=== PATIENT | female | born 1940 | race Caucasian/White ===

== ENCOUNTER 2022-08-21 15:25 | Inpatient (IN) | payer MEDICARE, OTHER, SELFPAY ==
[2022-08-21 15:38] VITALS: BP 182/84; PULSE 67; RESP 18; TEMP 37.4; O2SAT 97
--- OUTSIDE RECORDS SUMMARY | 2022-08-21 15:39 | XMS_ITS | Continuity of Care Document ---
:1940 Author Organization [facility] Address [address] [place] [address] Care Team Providers Name Role Phone Addison Soria Primary Care Physician Encounter [facility] Date(s): 06/03/22 - 06/03/22 [facility] [address] [place] [address] Encounter Diagnosis Osteoporosis screening (Discharge Diagnosis) - 06/03/22 Encounter for annual routine gynecological examination (Discharge Diagnosis) - 06/03/22 Discharge Disposition: Home or Self Care Attending Physician: Kylie Lou MD Admitting Physician: Kylie Lou MD Referring Physician: Kylie Lou MD Allergies, Adverse Reactions, Alerts Substance Reaction Severity Status BEE VENOM PROTEIN (HONEY BEE) Unknown Ac tive CEDAR LEAF Unknown Active CEDARWOOD Unknown Active FISH CONTAINING PRODUCTS Unknown Active INSECT VENOM Unknown Active PEANUT Unknown Active LATEX Unknown Active MELON Anaphylactic reaction Unknown Active SHELLFISH DERIVED Anaphylactic reaction Unknown Active CUCUMBER Unknown Active ciprofloxacin Unknown Active codeine Urticaria Unknown Active erythromycin Urticaria Unknown Active iodine topical Urticaria Unknown Active conjugated estrogens Unknown Active albuterol Unknown Active nystatin Unknown Active Bee Stings1 Unknown Unknown Active penicillins Urticaria Unknown Active sulfa drugs Urticaria Unknown Active aloe vera Unknown Unknown Active metroNIDAZOLE Urticaria Unknown Active quiNINE Unknown Active Banana Swelling Unknown Active Tumefaction Cucumbers Unknown Unknown Active Fluvanna wood2 Unknown Unknown Active 1Outside Source Comment: Bee venom [id number] Source Comment: Fluvanna leaf Assessment and Plan Future Appointments Immunizations Given and Recorded Vaccine Date Status Refusal Reason influenza virus vaccine, inactivated 05/09/22 Given influenza virus vaccine, inactivated 07/25/16 Recorded influenza virus vaccine, inactivated 08/07/15 Recorded influenza virus vaccine, inactivated 06/16/14 Recorded influenza virus vaccine, inactivated 05/22/13 Recorded influenza virus vaccine, inactivated 08/17/12 Recorded influenza virus vaccine, inactivated 06/09/11 Recorded SARS-CoV-2 (COVID-19) mRNA-1273 vaccine 06/21/21 Recorded SARS-CoV-2 (COVID-19) mRNA-1273 vaccine 11/04/20 Recorded SARS-CoV-2 (COVID-19) mRNA-1273 vaccine 10/07/20 Recorded influenza, unspecified formulation 05/06/21 Recorded influenza virus vaccine, live 07/26/18 Recorded pneumococcal 13-valent conjugate vaccine 08/24/15 Recorde d pneumococcal 23-polyvalent vaccine 06/23/11 Recorded pneumococcal 23-polyvalent vaccine 05/01/08 Recorded tetanus/diphth/pertuss (Tdap) adult/adol 06/09/11 Recorde d tetanus-diphth toxoids (Td) adult/adol 11/19/96 Recorded varicella virus vaccine 08/21/00 Recorded rubella virus vaccine 08/21/00 Recorded Problem List Condition Confirmation Course Effective Dates Status Health Stat us Informant Allergic rhinitis Confirmed Active Backache Confirmed Active Cataract of right Confirmed 06/18/19 Active eye Kenney of toe Confirmed Active Crohn's disease Confirmed Active Dementia Confirmed 05/06/21 Active Elevated Confirmed Active blood-pressure reading without diagnosis of hypertension Fibromyalgia Confirmed Active Gastritis Confirmed Active Hemangioma of skin Confirmed Active and subcutaneous tissue Panic disorder Confirmed Active Rectal prolapse Confirmed Active Uterine prolapse Confirmed Active Procedures Procedure Date Related Diagnosis Body Site Status Vaginal hysterectomy1 03/09/21 Comple jabari Colonoscopy2 08/20/14 Completed Abscess Incision and Drainage3 Completed Tonsillectomy and adenoidectomy Completed 1TVH, USVVS, A&P repair, [id number] of fistula tract and injection fibrin [id number] and transsphincteric Social History Social History Type Response Tobacco Former tobacco user Tobacco Use:. Sex Female Patient Care team information PersonnelName: Addison Soria MD Address: Address: [address] [address]- [place]
[2022-08-21] MEDS: Lactated Ringers 1,000 ML 85 ML IV (16:40)
--- NOTE | 2022-08-21 17:00 | W.PM.HP.N ---
Date of service: 08/21/22 Time of Service: 17:00 Assessment and Plan Assessment and plan (1) Fracture of femoral neck, right: Status: Acute Assessment and plan: Patient is medically stable and has no contraindications for surgical repair of her hip. She has dementia severe enough that I do not feel she has capacity for decision making but her is her surrogate. I confirmed w/ him that she is a DNR/DNI in the event of cardiopulmonary arrest and he consents to her having operative repair of her hip. I did explain to him that during the time of her operation her DNR/DNI status will be revoked until she comes out of surgery and also that the nurse inspector metal fabricating will review her case in the morning. I have discussed her case w/ Dr. Williamson who presented to the hospital to interview and examine the patient independently and who spoke w/ the patient's over the telephone. I have ordered grubbs to be placed and will get urinalysis given her leukocytosis however, this may be reactive leukocytosis. History of Present Illness History of Present Illness Chief Complaint: right hip pain, s/p fall and fem. 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 found her fallen over a chair. She did not lose consciousness. She complained of a sore right hip but her was able to assist her to bed. However, when she could not walk this morning she was brought to [facility] in [place], [place]. However, no orthopedic sureon was available at their facility and when the ED provider tried to reach out to [facility] [place] did not have bed capacity so Dr. Williamson was called and he accepted the patient. Patient has no known hx of CAD/CHF/CVA/DM or HTN although she has hx of transient elevated BP w/out a formal dx of HTN. She takes no medications. Review of Systems All systems reviewed & are unremarkable except as noted in HPI and below PFSH All Active Problems (Updated 08/21/22 @ 19:25 by Nael Brady MD) Fracture of femoral neck, right (Acute) Medical History (Updated 08/21/22 @ 19:25 by Nael Brady MD) Allergic rhinitis Cataract, right eye Crohn's disease Dementia Elevated blood pressure reading without diagnosis of hypertension Fibromyalgia Hemangioma of skin Rectal prolapse Uterine prolapse Surgical History (Updated 08/21/22 @ 19:21 by Nael Brady MD) History of tonsillectomy and adenoidectomy History of vaginal hysterectomy Social History (Updated 08/21/22 @ 19:24 by Nael Brady MD) Smoking/Tobacco Use Status: Former Tobacco Use tobacco type: cigarettes Quit Date: 08/21/92 Tobacco: How many years used: 20 Smoking risk assessment performed?: Yes Alcohol Intake: never Meds Allergies and Home Medications Allergies Allergy/AdvReac Type Severity Reaction Status Date / Time albuterol Allergy Unverified 08/21/22 16:05 aloe vera Allergy Unverified 08/21/22 16:05 banana Allergy Unverified 08/21/22 16:05 bee venom protein (honey bee) Allergy Unverified 08/21/22 16:05 cedar leaf Allergy Unverified 08/21/22 16:05 cedarwood Allergy Unverified 08/21/22 16:05 ciprofloxacin Allergy Unverified 08/21/22 16:05 codeine Allergy Unverified 08/21/22 16:05 cucumber Allergy Unverified 08/21/22 16:05 erythromycin base Allergy Unverified 08/21/22 16:05 estrogens, conjugated Allergy Unverified 08/21/22 16:05 Fish Containing Products Allergy Unverified 08/21/22 16:05 iodine Allergy Unverified 08/21/22 16:05 latex Allergy Unverified 08/21/22 16:05 melon Allergy Unverified 08/21/22 16:05 metronidazole Allergy Unverified 08/21/22 16:05 nystatin Allergy Unverified 08/21/22 16:05 peanut Allergy Unverified 08/21/22 16:05 Penicillins Allergy Unverified 08/21/22 16:05 quinine Allergy Unverified 08/21/22 16:05 shellfish derived Allergy Unverified 08/21/22 16:05 Sulfa (Sulfonamide Allergy Unverified 08/21/22 16:05 Antibiotics) Home Medications Medication Instructions Recorded Confirmed Type Unknown [No Known Home Meds] 08/21/22 08/21/22 History Exam Narrative Exam Narrative: Elderly female lying in bed she is alert and only oriented to person however she knows that she is in the hospital and understands that she fractured her hip from a fall. She is unable to to give details as to how this happened and she is unable to give me any past medical history. She is very tangential in her conversation and in fact she does not remember answers I have given her at the beginning of our conversation and repeats her questions at the end of the conversation. She has difficulty finding the right words to express herself and at times uses the wrong word to describe what she wants to say. HEENT is unremarkable, teeth are in fair repair w/ a number of crowns. Oropharynx Mallampati class I Neck supple nontender, no JVD, no thyromegaly, normal carotid pulses Lungs: clear to auscultation Heart: RRR, no m,r,g Abdomen: soft, nontender, no organomegaly and no bruits Extremities: foreshortening of right leg, pain w/ palpation over right femoral neck; no ecchymoses, left leg normal ROM and strength, normal ROM and strength in both UE Pulses: normal carotid, radial and popliteal and pedal pulses Results Imaging CT scan - pelvis: report reviewed Labs Labs: Labs from [facility] are as follows: CBC WBC 12,600, Hb 13.5 gm, HCT 39.7, platelets 281,000, CMP: sodium 140, potassium 3.5, chloride 103, CO2 27, BUN 14, creatinine 0.81, AST 24, ALT 24, ALK PHOS 78, albumin 3.6 Last Vital Signs Temp 37.4 C 08/21/22 15:38 Pulse 67 08/21/22 15:38 Resp 18 08/21/22 15:38 BP 182/84 H 08/21/22 15:38 Pulse Ox 97 08/21/22 15:38
--- NOTE | 2022-08-21 18:25 | OCONE_ITS ---
Date of service: 08/21/22 Time of Service: 05:30 History of Present Illness History of Present Illness Chief Complaint: Right hip fracture Narrative: Dee is an 81-year-old female who lives at home with her . She is otherwise independent with ambulation and mobility using no assistive aids. Last night, she had a mechanical fall onto her right side. She reported some pain. Her was able to assist her up and get her back to bed. However, when she tried to get out of bed once again she had significant pain. This pain persisted when she was trying to move. As long she was still coming laying down, or sitting, she did not have any pain. However, given the limitations she was taken to the emergency department and diagnosed with a valgus impacted femoral neck fracture on the right side. This was at [facility]. [facility] denied orthopedic coverage and was unable to find an accepting tertiary referral location. I was called to request consultation and surgical treatment. She was admitted to the hospital service here at [facility] in transfer. She has severe dementia which precludes any history and does limit the exam. I reviewed the clinical scenario with her over the phone. He preferred these details listed above and also reported that she had no head trauma. She had no lightheadedness. She takes no medications. She does have multiple allergies. Consults Consult date: 08/21/22 Requesting physician: Nael Brady Consult Reason Right Femoral Neck Fracture Assessment and Plan Assessment and plan (1) Fracture of femoral neck, right: Status: Acute Assessment and plan: Dee is an 81-year-old female who is status post mechanical fall onto the right side suffering a valgus impacted femoral neck fracture. This truly does represent a stable injury given that she was able to bear some weight on this prior to presenting to the hospital. CT scan and x-ray, performed after she had been weightbearing, demonstrate no significant displacement. She does have some arthritic changes in the right hip although her reports no limitations with her functional status nor complaints of pain. Therefore, I think percutaneous screw fixation of the right hip fracture would make the most sense to preserve her function and allow this fracture to heal and continue her weightbearing status. It does carry the risk of osteonecrosis and hardware prominence as the primary risk. I discussed this with her . However, the simplicity of the surgery and the ability to perform this with minimal anesthetic would be beneficial for her overall mental status. I reviewed the technical details of percutaneous screw fixation for the femoral neck fracture. I discussed risk to include bleeding, infection, pain, stiffness, damage to nerves and vessels, damage to muscle and tendons, hardware prominence, hardware failure, malunion, nonunion, osteonecrosis, worsening arthritis, blood clot, need for repeat procedures, cardiopulmonary demise. All of his questions were answered and he desires to proceed with the surgery for Dee, consenting over the phone as her DPOA. Review of Systems All systems reviewed & are unremarkable except as noted in HPI and below PFSH All Active Problems Fracture of femoral neck, right (Acute) Medical History Allergic rhinitis Cataract, right eye Crohn's disease Dementia Elevated blood pressure reading without diagnosis of hypertension Fibromyalgia Hemangioma of skin Rectal prolapse Uterine prolapse Surgical History History of tonsillectomy and adenoidectomy History of vaginal hysterectomy Social History Smoking/Tobacco Use Status: Former Tobacco Use tobacco type: cigarettes Quit Date: 08/21/92 Tobacco: How many years used: 20 Smoking risk assessment performed?: Yes Alcohol Intake: never Exam Narrative Exam Narrative: Sitting up in the hospital bed eating dinner. She is alert but not oriented to place or time or situation. She is no recollection of events. She is able to minimally participate in the examination although filling in with details that are nonsensical to the question asked. Her right leg does appear slightly shorter and externally rotated when compared to the left side. She is quite thin but without any skin defects, abrasions, skin tears. She reports some generalized pain to palpation throughout although objectively seems to be most discomfort with palpation along the right hip. No other ecchymosis identified. No apparent sign of head trauma. She is able demonstrate active great toe extension and flexion as well as ankle dorsiflexion and plantarflexion. She does endorse sensation throughout the foot. Palpable DP pulse. Results Last Vital Signs Temp 37.4 C 08/21/22 15:38 Pulse 67 08/21/22 15:38 Resp 18 08/21/22 15:38 BP 182/84 H 08/21/22 15:38 Pulse Ox 97 08/21/22 15:38 Imaging Imaging Studies: X-ray of the right hip performed at [facility] demonstrates a valgus impacted femoral neck fracture. There is no notable medial fracture extension or displacement. CT scan of the right hip was also reviewed which once again shows this fracture pattern with a mild fracture defect medially but without displacement. There is no posterior angulation. There is some cystic change seen within the acetabulum, mostly on CT scan, but with some joint space present.
[2022-08-21 19:19] VITALS: BP 169/81; PULSE 72; RESP 20; TEMP 37.5; O2SAT 97
[2022-08-21] MEDS: ACETAMINOPHEN 1,000 MG/100 ML BTL 400 MG IVPB (20:40)
[2022-08-21 21:24] LABS: Bilirubin Negative (Negative); Blood Trace-intact (Negative); Clarity Sl Cloudy (Clear); Glucose Negative (Negative); Ketones Negative (Negative); Leukocyte Esterase Trace (Negative); Nitrite Negative (Negative); Urobilinogen 0.2 EU/dL (Up TO 0.2); pH 7.5 (5-8)
[2022-08-21 21:32] LABS: RBC 0-2 HPF (0-2)
[2022-08-21 21:33] LABS: Bacteria Moderate HPF (Negative); C & S Indicated? Yes; Casts Negative LPF (Negative); Crystals Negative HPF (Negative); Epithelial Cells Few HPF (Negative); Mucus Negative (Negative)
[2022-08-22 02:27] VITALS: BP 160/77; PULSE 69; RESP 16; TEMP 36.6; O2SAT 95
[2022-08-22] MEDS: ACETAMINOPHEN 1,000 MG/100 ML BTL 400 MG IVPB (03:59)
[2022-08-22] MEDS: Normal Saline Flush 10 ML SYR IVP (04:00)
[2022-08-22] MEDS: Lactated Ringers 1,000 ML 85 ML IV (04:44)
--- NOTE | 2022-08-22 06:15 | RT.EKG_ITS ---
APPROVED REPORT Exam: Resting ECG Reason for Exam: preop EKG Patient Location: I HR:65 bpm ECG Measurements Heart Rate 65 AXIS NH 120 P 73 QRSd 87 QRS 76 QT 419 T 60 QTc 436 Conclusion Sinus rhythm...normal P axis, V-rate 50- [address] depression, inferior leads...ST <-0.04mV, II III aVF
[2022-08-22 06:24] LABS: Abs Immature Grans 0.03 10^3/uL (0.0-0.06); Absolute Basophil Count 0.04 10^3/uL (0.0-0.2); Absolute Eosinophil Count 0.27 10^3/uL (0.0-0.7); Absolute Lymphocyte Count 1.17 10^3/uL (1.2-3.4); Absolute Monocyte Count 0.58 10^3/uL (0.1-0.8); Absolute Neutrophil Count 5.98 10^3/uL (1.2-6.7); Basophils % 0.5; Eosinophils % 3.3; HCT 38.6 % (36.0-46.0); Immature Grans % 0.4; Lymphocytes % 14.5; MCH 29.2 pg (27.0-33.0); MCHC 33.7 % (32.0-36.0); MCV 87 fL (80-95); Monocytes % 7.2; Neutrophils % 74.1; Platelet Count 262 10^3/uL (130-400); RBC 4.45 10^6/uL (3.93-5.22); RDW 11.6 % (11.7-14.6); RDW-SD 37.3 fL; WBC 8.07 10^3/uL (4.4-10.8)
--- NOTE | 2022-08-22 06:33 | W.ANESPRE ---
General Info Date of Service Date Performed: 08/22/22 Height: 5 ft 4 in (Guestimate. ) Weight: 52.072 kg Body Mass Index (BMI): 19.7 Surgical Procedure: Percutaneous screw fixation right femoral neck fracture Meds Allergies and Home Medications Allergies Allergy/AdvReac Type Severity Reaction Status Date / Time albuterol Allergy Unverified 08/21/22 16:05 aloe vera Allergy Unverified 08/21/22 16:05 banana Allergy Unverified 08/21/22 16:05 bee venom protein (honey bee) Allergy Unverified 08/21/22 16:05 cedar leaf Allergy Unverified 08/21/22 16:05 cedarwood Allergy Unverified 08/21/22 16:05 ciprofloxacin Allergy Unverified 08/21/22 16:05 codeine Allergy Unverified 08/21/22 16:05 cucumber Allergy Unverified 08/21/22 16:05 erythromycin base Allergy Unverified 08/21/22 16:05 estrogens, conjugated Allergy Unverified 08/21/22 16:05 Fish Containing Products Allergy Unverified 08/21/22 16:05 iodine Allergy Unverified 08/21/22 16:05 latex Allergy Unverified 08/21/22 16:05 melon Allergy Unverified 08/21/22 16:05 metronidazole Allergy Unverified 08/21/22 16:05 nystatin Allergy Unverified 08/21/22 16:05 peanut Allergy Unverified 08/21/22 16:05 Penicillins Allergy Unverified 08/21/22 16:05 quinine Allergy Unverified 08/21/22 16:05 shellfish derived Allergy Unverified 08/21/22 16:05 Sulfa (Sulfonamide Allergy Unverified 08/21/22 16:05 Antibiotics) Home Medication Medication Instructions Recorded Unknown [No Known Home Meds] 08/21/22 Current Visit Medications: Current Medications Generic Name Dose Route Start Last Admin Trade Name Freq PRN Reason Stop Dose Admin Al Hydrox/Mg Hydrox/Simethicone 30 ml 08/21/22 17:20 Mylanta Suspension 30 Ml Cup PO Q2H PRN PRN Dimethicone/Zinc Oxide 0 gm 08/21/22 17:20 Glory Protect Cream 142 Gm Tube TP PRN PRN Docusate Sodium 100 mg 08/21/22 17:20 Docusate Sodium 100 Mg Cap PO TID PRN PRN Fentanyl 50 mcg 08/21/22 15:32 Fentanyl 100 Mcg/2 Ml Vial IVP Q1H PRN PRN Ringer's Solution 1,000 mls @ 85 mls/hr 08/21/22 15:45 08/22/22 04:44 IV 85 mls/hr INFUSION FELTON Administration Sodium Chloride 500 mls @ 0 mls/hr 08/21/22 17:20 Saline 500ml Bag IV PRN PRN As Directed Acetaminophen 1,000 mg in 100 mls @ 400 mls/hr 08/22/22 04:30 08/22/22 03:59 Ofirmev IVPB 400 mls/hr Q8H FELTON Administration Cefazolin Sodium/Dextrose 2 gm in 50 mls @ 100 mls/hr 08/22/22 06:00 Ancef Duplex IVPB PREOP FELTON IV Miscellaneous Supplies 1 each 08/21/22 17:30 Iv Access IV DIRECTED FELTON Magnesium Hydroxide 30 ml 08/21/22 17:20 Milk Of Magnesia 30 Ml Cup PO DAILY PRN PRN Ondansetron HCl 4 mg 08/21/22 15:37 Ondansetron 4 Mg/2 Ml Vial IVP Q4H PRN PRN Polyethylene Glycol 17 gm 08/21/22 17:20 Polyethylene Glycol 3350 17 Gm Packet PO DAILY PRN PRN Constipation Sodium Chloride 0 ml 08/21/22 17:20 Normal Saline Flush 10 Ml Syr IVP PRN PRN Sodium Chloride 10 ml 08/21/22 19:32 08/22/22 04:00 Normal Saline Flush 10 Ml Syr IVP 20 ml PRN PRN Administration PFSH Active Problems Active Problems: Problem Status Onset Code Fracture of femoral neck, right Medical History Medical History Allergic rhinitis Cataract, right eye Crohn's disease Dementia Elevated blood pressure reading without diagnosis of hypertension Fibromyalgia Hemangioma of skin Rectal prolapse Uterine prolapse Surgical History Surgical History History of tonsillectomy and adenoidectomy History of vaginal hysterectomy Tobacco Smoking/Tobacco Use Status: Former Tobacco Use Alcohol Alcohol Intake: never Vital Signs and Lab Results Vital Signs Most Recent Vital Signs in EMR: Most Recent Vital Signs Temp Pulse Resp BP Pulse Ox 36.6 C 69 16 160/77 H 95 08/22/22 02:27 08/22/22 02:27 08/22/22 02:27 08/22/22 02:27 08/22/22 02:27 Lab Results Result Diagrams: 08/22/22 05:35 08/22/22 05:35 Blood Type / Crossmatch: No Data to Display Complete Blood Count: White Blood Count 8.07 10^3/uL (4.4-10.8) 08/22/22 05:35 Red Blood Count 4.45 10^6/uL (3.93-5.22) 08/22/22 05:35 Hemoglobin 13.0 g/dL (11.2-15.7) 08/22/22 05:35 Hematocrit 38.6 % (36.0-46.0) 08/22/22 05:35 Platelet Count 262 10^3/uL (130-400) 08/22/22 05:35 Complete Metabolic Panel: Sodium 140 mmol/L (136-145) 08/22/22 05:35 Potassium 3.5 mmol/L (3.5-5.1) 08/22/22 05:35 Chloride 105 mmol/L (98-107) 08/22/22 05:35 Carbon Dioxide 25.8 mmol/L (21.0-32.0) 08/22/22 05:35 BUN 12 mg/dL (7-18) 08/22/22 05:35 Creatinine 0.7 mg/dL (0.55-1.02) 08/22/22 05:35 Est GFR (CKD-EPI 2020) 87.37 (mL/min/1.73m2) 08/22/22 05:35 Calcium 8.8 mg/dL (8.5-10.1) 08/22/22 05:35 Glucose 96 mg/dL (74-106) 08/22/22 05:35 Liver Function Panel: No Data to Display Coagulation Panel: No Data to Display Cardiac Panel: No Data to Display Arterial Blood Gas: No Data to Display Venous Blood Gas: No Data to Display Pancreas Panel: No Data to Display Thyroid Panel: No Data to Display Infectious Disease: No Data to Display Blood Cultures: No Data to Display Toxicology Panel: No Data to Display Anesthesia Assessment and Plan Anesthesia History Personal History: No History of Anesthesia Complications Family History: No Family History of Anesthesia Complications Exercise Tolerance Exercise Tolerance: Metabolic Equivalents>4 Pertinent Negatives Pertinent Negatives: No Major Cardiovascular Symptoms or Complaints, No Major Pulmonary Symptoms or Complaints and No History of CVA/TIA Cardiac & Pulmonary Exam Cardiac Exam: Normal S1/S2 Heart Sounds Pulmonary Exam: Clear Bilateral Breath Sounds Implantable Cardiac Device Does patient have a Pacemaker or an ICD?: No Airway Exam Known Difficult Airway: No Mallampati Class: 2 Mouth Opening: Normal (> 3cm) Thyromental Distance: Greater than 3 cm Neck Range of Motion: Full ROM Neck Circumference: Normal Teeth Condition: Normal Dentition ASA Classification ASA Score: ASA 2 Emergency Case?: Yes NPO Status NPO Status: NPO Clears >2 hours, Solids >8 hours Anesthesia Plan Resuscitation Status: Full Code Anesthesia Technique: Spinal Anesthesia Airway Planned: Natural Airway Monitors Used: Standard Monitors Preoperative Comments:: Alzheimer's Disease, spinal vs surgeon localization with sedation as back up.
[2022-08-22 06:34] VITALS: BP 170/76; PULSE 63; RESP 16; TEMP 37; O2SAT 97
[2022-08-22 06:46] LABS: Anion Gap 9.2 mmol/L (3-11); BUN 12 mg/dL (7-18); CO2 25.8 mmol/L (21.0-32.0); CREATININE 0.7 mg/dL (0.55-1.02); Calcium 8.8 mg/dL (8.5-10.1); Chloride 105 mmol/L (98-107); Estimated GFR 87.37 (mL/min/1.73m2); Glucose 96 mg/dL (74-106); Potassium 3.5 mmol/L (3.5-5.1); Sodium 140 mmol/L (136-145)
--- NOTE | 2022-08-22 07:00 | DI.RAD_ITS ---
Exam(s) XR HIP RT IN OR EXAM: XR HIP RT IN OR CLINICAL HISTORY: HIP FRACTURE. TECHNIQUE: 2D and realtime digital imaging was performed. COMPARISON: CR XR HIP RT MIN 2V AND PELVIS from 08/21/2022 FINDINGS: Fluoroscopy was provided in the OR for Dr. Williamson. Hard copy images show placement of 2 partially threaded screws through the femoral neck for fracture fixation. The alignment appears anatomic. Please see procedure note for details. Fluoro time: 53.1seconds RADIATION DOSE DELIVERED: Taliar=7.23 mGy
[2022-08-22 07:28] VITALS: BP 163/77; PULSE 63; RESP 18; TEMP 37.1; O2SAT 97
[2022-08-22] MEDS: ceFAZolin 2 GM/50 ML BAG IVPB (08:06)
[2022-08-22 08:24] VITALS: BMI 19.7
[2022-08-22] MEDS: Bupivacaine 0.25% Pres-Free 30 ML VIAL (08:25)
[2022-08-22 08:58] VITALS: BP 167/76; PULSE 60; RESP 16; TEMP 36; O2SAT 96
--- NOTE | 2022-08-22 09:03 | ROE_ITS ---
Date of service: 08/22/22 Time of Service: 08:45 Operative Note Operative Note DATE OF PROCEDURE: 08/22/22 PRE-OP DIAGNOSIS: Right Femoral Neck Femur Fracture POST-OP DIAGNOSIS: same PROCEDURE: Cannulated Screw Fixation of Proximal Femur Fracture - Right SURGEON: Toni Williamson ANESTHESIA TYPE: Spinal Refer to Anesthesia Record ESTIMATED BLOOD LOSS: 10 PATHOLOGY: none sent COMPLICATIONS: None Patient was transported to: PACU Patient's condition: stable Implants: Synthes 7.3mm cannulated screws (x3) Indications: Dee is a 74 year old female who presented to the Emergency Department after a fall. X-rays confirmed the diagnosis of a femoral neck fracture of the proximal femur without significant displacement or comminution. I reviewed the possible treatment options and given the fracture of the femur, I recommended operative fixation. I discussed the technical details of the surgery. I reviewed the risks such as bleeding, infection, pain, stiffness, malunion, nonunion, hardware prominence, hardware failure, avascular necrosis, blood clot. Despite these risks, she agreed to proceed. Findings: A femoral neck fracture was confirmed to be stable and thus secured with #3 7.3mm cannulated screws in a percutaneous fashion. Procedure Description: Dee was taken back to the operating room. A spinal anesthestic was then administered. The feet were wrapped with cast padding and Coban and then placed into the boot liners and then into the boots. Care was taken to protect the skin and make sure the heels were fully down and the boots were stable. The patient was then positioned onto the HANA table. Both legs were held in a neutral position. SCDs were applied. The patient was then slid down onto a perineal post. The arm of the operative side was then placed across the chest and secured. The nonoperative leg was scissored. A gentle reduction was then performed with traction and internal rotation and gentle external manipulation. Prophylactic antibiotics in the form of Cefazolin were administered. The right leg was then prepped with Chloraprep and draped in a standard fashion with shower-curtain type drape with Iodine impregnated skin protection. A timeout to confirm correct identity, side and site, procedure, allergies, anesthesia, and medical concerns was performed. Using fluoroscopy, the starting point was marked over the lateral hip. The first pin was placed into a posterior?inferior position to form an inverted triangle. This was made sure to start proximal of the lesser trochanter. It was advanced into the femoral head and confirmed to be in a good position both on the AP and the lateral. 2 additional pins from the 7.3 mm cannulated system replaced, both superior, 1 anterior 1 posterior. These were once again confirmed to be in good position on fluoroscopy. They were advanced to the appropriate position in the path of the pin was cut with a knife. The pin length was measured and the lateral cortex was opened with a drill. The a ppropriate sized screws were then placed loosely. Once all 3 were in position I then proceeded circumferentially tightening each screw by 1 or 2 turns into each were tightened. These had excellent fixation. There is no screw penetration in the head and no penetration within the lateral cortex. AP and lateral x-rays were once again obtained to confirm appropriate positioning throughout both maris yuliana and without displacement nor fracture propagation. The wounds were thoroughly irrigated. 0.25% bupivacaine was injected throughout the wounds both deep and superficially. The skin was closed with a subcuticular Monocryl. This was reinforced with skin glue. The wounds were dressed with a Mepilex silver dressing. At the end of the case, all counts were correct. Dee tolerated the procedure well without known complication and was taken to the PACU for recovery. Physical therapy will start post-operatively, weigh-bearing as tolerated with assistive devices. Anticoagulation will start within 12-24 hours. 24 hours of post-operative antibiotics for prophylaxis will be administered.
--- NOTE | 2022-08-22 09:07 | DI.VRAD_ITS ---
PROCEDURE INFORMATION: Exam: XR Right Hip Exam date and time: 08/22/2022 8:18 AM Age: 81 years old Clinical indication: Screening exam; RT hip pinning in or; Prior surgery; Surgery date: Post-operative (0-2 days) TECHNIQUE: Imaging protocol: Radiologic exam of the Right hip. Views: 1 view hip with pelvis when performed. COMPARISON: CR XR HIP RT MIN 2V AND PELVIS 08/21/2022 8:47 AM FINDINGS: Bones/joints: Status post ORIF of proximal right femoral fracture. Soft tissues: Unremarkable. Other findings: 53 seconds of intraoperative fluoroscopy time was utilized in performance of the procedure. IMPRESSION: Status post ORIF of proximal right femoral fracture. Dictated and Authenticated by: Greyson Ashraf MD. Ordering:DANIELITO Muñoz MD
[2022-08-22 09:15] VITALS: BP 155/67; PULSE 58; RESP 17; TEMP 36.2; O2SAT 95
[2022-08-22] MEDS: cefTRIAXone 1 GM/50 ML BAG IVPB (09:22)
--- NOTE | 2022-08-22 10:55 | PGE_ITS ---
Date of Service Date of service: 08/22/22 Time of Service: 10:55 Assessment and Plan Assessment and plan (1) Fracture of femoral neck, right: Status: Acute Assessment and plan: POD#1 right femoral neck fracture screw fixation. patient is alert, able to take PO now so I will dc her iv fluids. P.T. to be consulted. I anticipate discharge in the next 24 to 48hr if she is doing well w/ P.T. Professional time spent interviewing and examining patient, discussion of goals of care with hospital team (care management, nursing and consulting professionals) was 15 minutes. Subjective Subjective Interval history since last seen: Patient had her right hip repair this morning but seems to have no recollection of having had surgery this morning. She is alert and sitting up watching TV. no pain Exam Narrative Exam Narrative: Elderly pleasantly demented white female sitting up in bed oriented to person and knows she is in the hospital but otherwise not oriented to circumstance or time Lungs are clear to auscultation Heart is regular rate and rhythm Abdomen soft nondistended nontender normal bowel sounds Right hip has a bandage over surgical site there is no edema or ecchymosis, she has normal pedal pulses no edema Objective Last Vital Signs Temp 36.2 C L 08/22/22 09:15 Pulse 58 L 08/22/22 09:15 Resp 17 08/22/22 09:15 BP 155/67 H 08/22/22 09:15 Pulse Ox 95 08/22/22 09:15 Laboratory Results - last 24 hr 08/21/22 08/22/22 08/22/22 21:16 05:35 05:35 WBC 8.07 RBC 4.45 Hgb 13.0 Hct 38.6 MCV 87 MCH 29.2 MCHC 33.7 RDW 11.6 L Plt Count 262 MPV 9.0 Immature Gran % 0.4 Neutrophils % 74.1 Lymphocytes % 14.5 Monocytes % 7.2 Eosinophils % 3.3 Basophils % 0.5 Nucleated RBC % 0.0 Absolute Neutrophils 5.98 Absolute Lymphocytes 1.17 L Absolute Monocytes 0.58 Absolute Eosinophils 0.27 Absolute Basophils 0.04 Sodium 140 Potassium 3.5 Chloride 105 Carbon Dioxide 25.8 Anion Gap 9.2 BUN 12 Creatinine 0.7 Est GFR (CKD-EPI 2020) 87.37 Glucose 96 Calcium 8.8 Urine Color Yellow Urine Clarity Sl Cloudy Urine pH 7.5 Ur Specific [place] 1.020 Urine Protein Negative Urine Ketones Negative Urine Blood Trace-intact H Urine Nitrite Negative Urine Bilirubin Negative Urine Urobilinogen 0.2 Ur Leukocyte Esterase Trace H Urine RBC 0-2 Urine WBC 5-10 Ur Epithelial Cells Few Urine Crystals Negative Urine Bacteria Moderate Urine Casts Negative Urine Mucus Negative Ur Culture Indicated? Yes Urine Glucose Negative
[2022-08-22 10:58] VITALS: BP 157/67; PULSE 69; RESP 19; TEMP 36.6; O2SAT 95
--- NOTE | 2022-08-22 11:20 | W.ANESPOSTOP ---
Postoperative Evaluation Date, Time and Location Date Performed: 08/22/22 Time Performed: 08:58 Patient Location: Med/Surg Vital Signs Most Recent Imported Vital Signs: Most Recent Vital Signs Temp Pulse Resp BP Pulse Ox 36.6 C 69 19 157/67 H 95 08/22/22 10:58 08/22/22 10:58 08/22/22 10:58 08/22/22 10:58 08/22/22 10:58 Pain Score Most Recent Pain Score: Most Recent Pain Score Pain Level 0 08/22/22 08:58 Assessment Mental Status: Awake (Alert & Oriented to Patient Baseline) Airway and Respiratory Function: Patent airway with normal (patient baseline) respiratory exam Cardiovascular Function: Hemodynamically Stable Hydration Status: Adequately Hydrated Nausea & Vomiting: No Nausea or Vomiting Pain: Pt. Denies Any Pain Peripheral Nerve Block: Patient did not receive a nerve block
[2022-08-22] MEDS: Acetaminophen 500 MG TAB 1000 MG PO (11:57)
[2022-08-22] MEDS: Fosfomycin Tromethamine 3 GM PACKET PO (12:52)
--- NOTE | 2022-08-22 13:18 | PT.INIE ---
PT Notes Visit Reasons: Right Femoral Neck Fracture Inpatient Physical Therapy Evaluation Date: 08/22/2022 Referring Doctor: Toni Williamson MD PT Orders: PT CONSULT: Nondisplaced fracture right hip status post ORIF Precautions: Falls Patient Profile/Admitting Diagnosis: 81-year-old female with dementia who fell and suffered a nondisplaced subcapital fracture of her right hip status post ORIF earlier today PMHX: PFSH All Active Problems?(Updated 08/21/22 @ 19:25 by Nael Brady MD) Fracture of femoral neck, right (Acute) Medical History?(Updated 08/21/22 @ 19:25 by Nael Brady MD) Allergic rhinitis Cataract, right eye Crohn's disease Dementia Elevated blood pressure reading without diagnosis of hypertension Fibromyalgia Hemangioma of skin Rectal prolapse Uterine prolapse Surgical History?(Updated 08/21/22 @ 19:21 by Nael Brady MD) History of tonsillectomy and adenoidectomy History of vaginal hysterectomy Social History/Home Situation: Difficult to assess due to the patient's dementia. No family members were present to acquire information Current Functional Limitations: Patient states that she is independent with all ADLs, but again question reliability Equipment Owned/DME: None mentioned Subjective: Pleasant and cooperative and follows simple commands appropriately Objective: General Observation: Resting comfortably in bed without complaints of pain Mental Status: Disoriented x3, not sure why she is in the hospital. Pain: Complains of some intermittent discomfort throughout the lateral aspect the right hip with weightbearing activities along with endrange hip movements Vital Signs: Resting pulse of 73 bpm and O2 sat was 96%. Following ambulation her O2 sat was 97% and her pulse was 75 bpm ROM: Her active assistive range of motion shows good functional range throughout without pain on movement, other than her right hip which is limited to approximately 90 degrees, rotation at 30 degrees and abduction at 45 degrees with some mild endrange discomfort throughout the lateral aspect of hip. Strength: Has full volitional movement throughout and her strength is generally rated +4/5 other than her right hip flexors at -3/5 and right quads 3/5 Sensation: Intact to light touch, and has full motor control Bed Mobility/Transfers: Patient required mild assist with her right lower extremity when assuming the supine to sitting to standing positions. Gait: Ambulated approximately 30 feet with FWW, weightbearing as tolerated with contact guarding. Balance: Static Sitting: StableDynamic Sitting: Stable Static Standing: Good with her hands resting on the wheeled walker Dynamic Standing: Fair requiring standby supervision with minimal contact guarding. Unilateral standing was not performed Special Tests: Mobility Limitations Standardized Measure [facility] AM-PAC 6 clicks Basic Mobility Inpatient Short Form: Raw Score: 15 standardized Score: 2.93 CMS Score: 57.7% Informed Consent/Education: Patient instructed in purpose of PT consult and plan of care. Assessment: Patient is a 81year old female referred to physical therapy services with the diagnosis of subcapital fracture right hip status post ORIF earlier today.. Patient presents with clinical signs and symptoms consistent with diagnosis, as demonstrated by the following impairment level findings: Minimal assistance with her bed mobility particular her right lower extremity, and now ambulation with an assistive device.. Patient is assessed as a Moderate 70327 complexity based on the following: History: See comorbidities and social history Examination: See above for functional limitations and impairments Presentation: Evolving Decision Making: Moderate complexity based on her clinical findings Goals: Goals X1 week 1. Supine-Sit independent 2. Sit-Supine independent 3. Sit-Stand independent 4. Stand-Sit independent 5. Bed-Chair independent 6. Chair-Bed independent 7. Gait independent ambulation for greater than 300 feet with an FW W, weightbearing as tolerated with minimal contact guarding 8. Stairs a scend and descend 5 steps with a railing Plan of Care/Treatment Plan: 1-2x/day, 7 days/week x 1 week. Plan of care has been reviewed with the NURSE PRACTITIONER PER DIEM providing the service under Physical Therapy direction. Initiate Physical Therapy intervention for strengthening, bed mobility, transfers, gait, stairs, balance training, use of assistive device. DISCHARGE RECOMMENDATIONS: Too early to determine because I am unfamiliar with her home setting along with support/assistance at home, due to difficulty getting information because of patient's dementia. Once we gather this information, I will have a better grasp regarding recommendations. TREATMENT CODE/TIME: 9716 2/45 minutes Disclaimer: This note was created using [employer] voice recognition software. It was reviewed for major content. However, there may be multiple small discrepancies and errors due to the voice recognition aspects of the software.
--- NOTE | 2022-08-22 14:20 | W.PM.DS.N ---
Date of service: 08/22/22 Time of Service: 14:21 DS: Diagnosis Discharge Diagnosis (1) Fracture of femoral neck, right: Status: Acute Discharge Plan Disposition Patient Disposition: Home W/Home Health Services Condition: Improving Discharge Details Reason For Visit: Right Femoral Neck Fracture Admit Date/Time: 08/21/22 15:25 Admit Provider: Nael Brady Attending Provider: Nael Brady Hospital Course Hospital Course: Patient was admitted to the medical/surgical floor as a transfer from [facility]. She was taken to the operating room on HD#2 for percutaneous screw fixation of the right femoral neck fracture. The surgery was tolerated well without any notable medical, surgical, or anesthetic complications. Mobilization began postoperatively. She was voiding spontaneously. Vitals were stable. Physical therapy worked with the patient and was cleared for discharge home. No acute medical issues. Pain was controlled on oral regimen. Home Meds and New Rx's Prescriptions: New aspirin 81 mg tablet,delayed release (DR/EC) 81 mg PO BID Qty: 30 0RF acetaminophen 500 mg tablet 500 mg PO Q6H PRN PRN (Reason: pain) Qty: 40 3RF ibuprofen 600 mg tablet 600 mg PO TID PRN (Reason: pain) Qty: 60 3RF Discharge Instructions Additional Instructions: Hip Discharge Instructions Activity: There are no restrcitions. You may gently increase activity as tolerated but should use the walker at all times to assist with weight-bearing. Home health physical therapy has been ordered to assist with you ambulation and recovery at home. Outpatient physical therapy may also be necessary to regain strength and ambulatory function. Dressing: Keep the surgical dressing in place for at least one week. After the first week it may be removed and replaced with bandaids. It may get wet after 3 days but avoid soaking the dressing. If it gets wet, just lightly pat dry. If the dressing becomes soiled or loose, it may be replaced with bandaids. Follow-up: 4 weeks If you have any acute concerns or questions, please do not hesitate to contact the office at [phone]. You may contact Dr. Williamson with any questions after hours through the hospital at [phone] or on his cell phone at [phone]. 1. Encounter Date and Reason I certify that Dee Toledo was seen by Toni Williamson MD on 08/22/22 and that I had a [id number] encounter with this patient that meets the physician face to face encounter requirements. 2. Clinical Findings Supporting Skilled Need and Homebound Status I certify that home health services are medically necessary, include either intermittent half-way and/or physical/speech therapy, and that this patient is homebound in that absences from the home require considerable and taxing effort and are infrequent or of short duration, or are attributable to the need to receive medical care. [X] (a) Attached documentation from encounter provides clinical findings supporting skilled need and homebound status (including what assistance patient requires to leave the home). The encounter with the patient was in whole, or in part, for the following medical condition, which is the primary reason for home health care: Right Femoral Neck Fracture Shelter: Physical Therapy: Dee would benefit from home health physical therapy to assist with strengthening and return to normal ambulatory function after right femoral neck fracture and surgical fixation. She is weightbearing as tolerated with assistive devices. Speech Therapy: Homebound: Dee is homebound and unable to leave her home unassisted. 3. Certification and Authentication I certify that I composed the above information based on my clinical judgement relating to this patient's medical condition and, if applicable, clinical findings communicated to me by the NPP or inpatient physician who performed the Home Health Referral. All further orders will be obtained through Dr. Williamson Referrals: Toni Williamson MD [ [facility] STAFF PHYSICIAN] - Activity:: Activity as Tolerated Equipment/Supplies:: Walker Diet:: As Tolerated Discharge Orders Discharge Orders: Discharge Order (Routine); Ordered 08/22/22 Ordered By: Toni Williamson DS: Summary Time Spent with Patient providing and/or coordinating discharge services: Less than 30 minutes Status at Discharge Functional status at discharge: uses cane/walker Overall status at discharge: patient is progressing back to baseline Mental Status: other (baseline) Speech and Movement: speech and movement normal Mood: congruent mood and other (baseline) Affect: normal affect Exam Narrative Exam Narrative: Confused but alert. Dressing c/d/i. Moving freely in the bed. SILT DP/SP/Tib. +DP/PT. Psych Mental Status: other (baseline) Speech and Movement: speech and movement normal Mood: congruent mood and other (baseline) Affect: normal affect DS: Data Vitals/I&O Vitals and I&O: Vital Signs Temperature 36.6 C 08/22/22 10:58 Temperature Source Tympanic 08/22/22 10:58 Pulse 69 08/22/22 10:58 Pulse Rhythm Regular 08/22/22 07:05 Respiratory Rate 19 08/22/22 10:58 Respiratory Effort Non-Labored 08/22/22 07:05 Respiratory Depth Normal 08/22/22 07:05 Respiratory Pattern Normal 08/22/22 07:05 Blood Pressure 157/67 H 08/22/22 10:58 Pulse Oximetry 95 08/22/22 10:58 Oxygen Delivery Method Room Air 08/22/22 10:58 Oxygen Flow Rate 0 08/22/22 10:58 Pain Level 0 08/22/22 11:57 Intake & Output 08/21/22 08/22/22 08/22/22 23:59 11:59 23:59 Intake Total 1823.833 / 1823.833 Output Total 1350 / 1350 600 / 600 Balance -1350 / -1350 1223.833 / 1223.833 Weight 48.9 kg Intake: IV 1823.833 / 1823.833 Output: Urine 1350 / 1350 600 / 600 Other: Urine Color Straw Yellow Urine Appearance Cloudy Clear Urine Odor Normal Voiding Methods Bedside Commode Toilet Data Completed and Pending Labs on day of discharge: Labs from last 24 hours 08/22/22 08/22/22 08/21/22 05:35 05:35 21:16 WBC 8.07 RBC 4.45 Hgb 13.0 Hct 38.6 MCV 87 MCH 29.2 MCHC 33.7 RDW 11.6 L Plt Count 262 MPV 9.0 Immature Gran % 0.4 Neutrophils % 74.1 Lymphocytes % 14.5 Monocytes % 7.2 Eosinophils % 3.3 Basophils % 0.5 Nucleated RBC % 0.0 Absolute Neutrophils 5.98 Absolute Lymphocytes 1.17 L Absolute Monocytes 0.58 Absolute Eosinophils 0.27 Absolute Basophils 0.04 Sodium 140 Potassium 3.5 Chloride 105 Carbon Dioxide 25.8 Anion Gap 9.2 BUN 12 Creatinine 0.7 Est GFR (CKD-EPI 2020) 87.37 Glucose 96 Calcium 8.8 Urine Color Yellow Urine Clarity Sl Cloudy Urine pH 7.5 Ur Specific [place] 1.020 Urine Protein Negative Urine Ketones Negative Urine Blood Trace-intact H Urine Nitrite Negative Urine Bilirubin Negative Urine Urobilinogen 0.2 Ur Leukocyte Esterase Trace H Urine RBC 0-2 Urine WBC 5-10 Ur Epithelial Cells Few Urine Crystals Negative Urine Bacteria Moderate Urine Casts Negative Urine Mucus Negative Ur Culture Indicated? Yes Urine Glucose Negative 08/21/22 21:16 Urine - Reflex from Ua Urine Culture - Pending Preliminary micro results at discharge 08/21/22 21:16 Urine Culture - Pending Urine - Reflex from Ua [facility] All Active Problems Fracture of femoral neck, right (Acute) Medical History Allergic rhinitis Cataract, right eye Crohn's disease Dementia Elevated blood pressure reading without diagnosis of hypertension Fibromyalgia Hemangioma of skin Rectal prolapse Uterine prolapse Surgical History History of tonsillectomy and adenoidectomy History of vaginal hysterectomy Social History Smoking/Tobacco Use Status: Former Tobacco Use tobacco type: cigarettes Quit Date: 08/21/92 Tobacco: How many years used: 20 Smoking risk assessment performed?: Yes Alcohol Intake: never
== END 2022-08-22 15:14 | disposition home health service (06) | DRG 481 ==
PROVIDERS: Student in an Organized Health Care Education/Training Program; Admitting Provider Internal Medicine; Visit Provider Internal Medicine
PROC: 0QS634Z Reposition Right Upper Femur with Internal Fixation Device, Percutaneous Approach (ICD-10-PCS; CPT 27236; principal; 2022-08-22 08:00)
DX: S72.091A Other fracture of head and neck of right femur, initial encounter for closed fracture (principal); K50.90 Crohn's disease, unspecified, without complications; F03.C0 Unspecified dementia, severe, without behavioral disturbance, psychotic disturbance, mood disturbance, and anxiety; Z66 Do not resuscitate; W19.XXXA Unspecified fall, initial encounter; M79.7 Fibromyalgia; R03.0 Elevated blood-pressure reading, without diagnosis of hypertension; J30.9 Allergic rhinitis, unspecified; N81.4 Uterovaginal prolapse, unspecified; K62.3 Rectal prolapse
CPT/HCPCS: 27236; 36415; 80048; 97162; 73501; 81003; 81015; 85025; 87086; 93005; 93010; 99222; 99231; J0131; J0690; J0696; J1885; J2250; J2405; J3490

== ENCOUNTER 2022-09-19 15:13 | Outpatient (CLI) | payer MEDICARE, OTHER, SELFPAY ==
--- NOTE | 2022-09-19 14:45 | DI.RAD_ITS ---
Exam(s) XR HIP RT AP LAT ONLY EXAM: XR HIP RT AP LAT ONLY CLINICAL HISTORY: S/P FEMORAL NECK FRACTURE. TECHNIQUE: 2D digital imaging was performed. Two images were obtained. AP and lateral views were ob tained. COMPARISON: XA,XR XR HIP RT IN OR from 08/22/2022 FINDINGS: BONES: There are stable post operative changes present. There again seen 3 screws transfixing the hanson bcapital femoral neck fracture. The fracture stable in alignment. No new fracture or dislocation. JOINTS: The joint spaces are well maintained. SOFT TISSUE: Normal. IMPRESSION: Stable postoperative changes. DATA REPOSITORY: RADIATION DOSE DELIVERED:
== END 2022-09-19 15:14 | disposition home or self-care (01) ==
LOC: DIORS 15:14
PROVIDERS: Visit Provider Student in an Organized Health Care Education/Training Program
DX: S72.091D Other fracture of head and neck of right femur, subsequent encounter for closed fracture with routine healing (principal); X58.XXXD Exposure to other specified factors, subsequent encounter
CPT/HCPCS: 73502

== ENCOUNTER 2022-10-20 11:29 | Outpatient (CLI) | payer MEDICARE, OTHER, SELFPAY ==
--- NOTE | 2022-10-20 11:40 | DI.RAD_ITS ---
Exam(s) XR HIP RT AP LAT ONLY EXAM: XR HIP RT AP LAT ONLY CLINICAL HISTORY: right femoral neck fracture s/p cannulated screw. TECHNIQUE: 2D digital imaging was performed. Two images were obtained. AP and lateral views were ob tained. COMPARISON: CR XR HIP RT AP LAT ONLY from 09/19/2022 FINDINGS: BONES: There are stable post operative changes present. No new fracture or dislocation. JOINTS: The joint spaces are well maintained. SOFT TISSUE: Normal. IMPRESSION: Stable postoperative changes. DATA REPOSITORY: RADIATION DOSE DELIVERED:
== END 2022-10-20 11:30 | disposition home or self-care (01) ==
LOC: DIORS 11:29
PROVIDERS: PCP Family Medicine; Referring Provider Family Medicine; Visit Provider Student in an Organized Health Care Education/Training Program
DX: S72.001D Fracture of unspecified part of neck of right femur, subsequent encounter for closed fracture with routine healing (principal); X58.XXXD Exposure to other specified factors, subsequent encounter; M70.61 Trochanteric bursitis, right hip
CPT/HCPCS: 73502

== ENCOUNTER → 2022-12-02 08:55 | Outpatient (BNVA) | payer MEDICARE, OTHER, SELFPAY | PROVIDERS: PCP Family Medicine; Referring Provider Family Medicine; Visit Provider Student in an Organized Health Care Education/Training Program | DX: S72.091D Other fracture of head and neck of right femur, subsequent encounter for closed fracture with routine healing (principal); X58.XXXD Exposure to other specified factors, subsequent encounter ==

== ENCOUNTER → 2023-05-17 01:29 | Outpatient (CLI) | payer MEDICARE, OTHER, SELFPAY ==
--- NOTE | 2023-05-17 08:45 | DI.CT_ITS ---
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 TECHNIQUE: Imaging Protocol: Axial computed tomography images with coronal and sagittal reformatted images were created and reviewed. CONTRAST MATERIAL: Intravenous: Omnipaque 350 Contrast volume:100mL COMPARISON: There are no priors for comparison. FINDINGS: The examination is limited due to patient motion artifact. There is dental artifact which obscures po rtions of the oropharynx and hypopharynx. Orbits and orbital soft tissues: Within normal limits. Visualized paranasal sinuses: There is mucosal thickening in the maxillary sinuses bilaterally. The remaining visualized paranasal sinuses and mastoid air cells are clear. Nasopharynx: Within normal limits. Oropharynx: Within normal limits. Hypopharynx: There is asymmetric thickening of the left aryepiglottic fold. Larynx: Within normal limits. The vocal cords appear symmetric and unremarkable. Retropharyngeal space: Within normal limits. Parotids/submandibular: Within normal limits. Thyroid gland: There are bilateral thyroid nodules. There is a 1.3 cm nodule in the lower pole of t he right lobe. There is a 1.8 x 1.8 cm periphery calcified hypodense nodule in the lower pole of the left lobe of the thyroid gland. Lymphadenopathy: There is scattered lymph nodes seen along the level one to level three all measurin g less than 8 mm in short axis diameter which are physiologic in nature. Trachea: Within normal limits. Lung apices: Within normal limits. Bones: Within normal limits for the patient's age. There is 2 mm of anterolisthesis of C4 on C5 whic h is likely degenerative. Alignment is otherwise unremarkable in the cervical spine. No aggressive osseous lesions are identified. Carotids/Jugular: Within normal limits. Soft tissues: Within normal limits. IMPRESSION: 1. Examination limited by patient motion artifact and dental artifact. 2. Symmetric and unremarkable vocal cords. 3. Asymmetric thickening of the left aryepiglottic fold. 4. Bilateral thyroid nodules. Nonemergent thyroid ultrasound may be obtained for further evaluation. 5. No evidence of cervical adenopathy. RADIATION DOSE DELIVERED: Total DLP Total DLP DATA REPOSITORY: All CT scans at this facility are submitted to the National Radiology Data Registry (NRDR) Dose Index Registry (DIR) with the [employer] ([employer]). RADIATION OPTIMIZATION: All CT scans at this facility use at least one of these dose optimization te chniques: automated exposure control; mA and/or kV adjustment per patient size (includes targeted exa ms where dose is matched to clinical indication); or iterative reconstruction.
--- NOTE | 2023-05-17 08:45 | DI.CT_ITS ---
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 TECHNIQUE: Imaging Protocol: Axial computed tomography images with coronal and sagittal reformatted images were created and reviewed. CONTRAST MATERIAL: Intravenous: Omnipaque 350 contrast volume:100 mL COMPARISON: CT CT LOWER EXT RT WO CONTRAST from 08/21/[address] NECK W from 05/17/2023 FINDINGS: The examination is limited due to patient motion artifact. Ventricles and Extra axial spaces: Normal in size and morphology for the patient's age. Hemorrhage: None. Cerebral parenchyma: There are areas of decreased attenuation in the white matter consistent with sma ll vessel ischemic disease. No acute territorial infarct is seen. Enhancement: No suspicious enhancement. Hodgen of [place]: Unremarkable. Midline shift: None. Brainstem/Cerebellum: Normal. Calvarium: Normal. Visualized Paranasal sinuses/Mastoids: There is mild mucosal thickening seen in the right maxillary s inus. The remaining visualized paranasal sinuses and mastoid air cells are clear. IMPRESSION: 1. No evidence of an intracranial mass or enhancing lesion. 2. 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 RADIATION DOSE DELIVERED: 2772.97 mGy.cm Total DLP DATA REPOSITORY: All CT scans at this facility are submitted to the National Radiology Data Registry (NRDR) Dose Index Registry (DIR) with the [employer] ([employer]). RADIATION OPTIMIZATION: All CT scans at this facility use at least one of these dose optimization te chniques: automated exposure control; mA and/or kV adjustment per patient size (includes targeted exa ms where dose is matched to clinical indication); or iterative reconstruction.
[2023-05-17 14:42] LABS: CREATININE 0.9 mg/dL (0.55-1.02); Estimated GFR 64.23 (mL/min/1.73m2)
[2023-05-17] MEDS: Normal Saline - Diluent 50 ML VIAL IJ (15:39)
[2023-05-17] MEDS: Omnipaque 350 MG/ML 100 ML BTL IJ (15:40)
== END ==
PROVIDERS: PCP Family Medicine; Visit Provider Registered Nurse Maternal Newborn
DX: I67.82 Cerebral ischemia (principal); J38.01 Paralysis of vocal cords and larynx, unilateral; R49.0 Dysphonia
CPT/HCPCS: 70491; 70470; 82565; J3490

== ENCOUNTER → 2023-06-01 00:46 | Outpatient (CLI) | payer MEDICARE, OTHER, SELFPAY ==
--- NOTE | 2023-06-01 06:14 | DI.US_ITS ---
Exam(s) US THYROID EXAM: US THYROID CLINICAL HISTORY: Bilateral thyroid nodules found on CT scan,e04.1,paralysis of vocal cords,. TECHNIQUE: Ultrasound thyroid performed using standard protocol. COMPARISON: CT CT HEAD WO/W from 05/17/[address] NECK W from 05/17/2023 FINDINGS: ISTHMUS: 2.2 mm RIGHT LOBE: Size: 4.4 x 1.5 x 1.5 cm Echogenicity: Normal. Vascularity: Normal. Nodules: There is a 1.4 x 1.3 x 1.4 cm solid hypoechoic nodule in the right lobe. There is a macroca lcification present. This is consistent with a TI rads level 4 nodule. Due to its size, follow-up i s recommended. There is a 1 x 1 x 1 cm cyst in the right lobe. No follow-up is recommended. LEFT LOBE: Size: 5.1 x 1.6 x 1.7 cm Echogenicity: Normal. Vascularity: Normal. Nodules: There is a 2.1 x 1.7 x 1.8 cm cyst in the left lobe. It has a peripheral calcification. It is anechoic. It is consistent with a TI rads level 3 nodule. Due to its size, follow-up is recomme nded. OTHER FINDINGS: There is a calcified nodes seen in the right neck. This is identified on the CT scan of the head and neck from 05/17/2023. IMPRESSION: Right thyroid nodule. Due to its size, follow-up is recommended. DATA REPOSITORY:
== END ==
PROVIDERS: PCP Family Medicine; Visit Provider Registered Nurse Maternal Newborn
DX: E04.1 Nontoxic single thyroid nodule (principal); J38.00 Paralysis of vocal cords and larynx, unspecified
CPT/HCPCS: 76536

== ENCOUNTER 2024-06-18 01:06 | Outpatient (CLI) | payer MEDICARE, OTHER, SELFPAY ==
--- NOTE | 2024-06-18 12:05 | DI.US_ITS ---
Exam(s) US THYROID EXAM: US THYROID CLINICAL HISTORY: 1 year follow up,thyroid nodule,e04.1,vocal cord paralysis, unilateral,j38.. TECHNIQUE: Ultrasound thyroid performed using standard protocol. COMPARISON: CT CT NECK W from 05/17/2023 US US THYROID from 06/01/2023 FINDINGS: Exam is limited by patient motion. ISTHMUS: 3 mm RIGHT LOBE: Size: 3.5 x 1.3 x 1.5 cm Echogenicity: Normal. Vascularity: Normal. Nodules: Upper to mid pole nodule measuring 1.5 x 0.9 x 1.2 cm, solid, hypoechoic, smoothly marginate d, wider than tall with macrocalcifications. TR 5, highly suspicious. FNA recommended. 0.9 x 1.3 x 0.2 centimeter cystic nodule lower pole. TR 1. LEFT LOBE: Size: 4.1 x 1.8 x 1.2 cm Echogenicity: Normal. Vascularity: Normal. Nodules: Peripherally calcified cyst lesion lower pole, 2.0 x 1.7 x 1.8 cm, not changed from prior. OTHER FINDINGS: Abnormally enlarged abnormally appearing lymph nodes in the right side of the neck la teral to the level of the thyroid is also exhibit abnormal internal calcifications. IMPRESSION: Limited exam due to patient motion. Suspicious nodule upper to mid pole right lobe thyroid. FNA recommended. Suspicious appearing lymph nodes in the right side of the neck also noted. DATA REPOSITORY:
== END 2024-06-18 01:26 ==
LOC: DI 01:06
PROVIDERS: PCP Family Medicine; Visit Provider Registered Nurse Maternal Newborn
DX: E04.1 Nontoxic single thyroid nodule (principal); J38.01 Paralysis of vocal cords and larynx, unilateral
CPT/HCPCS: 76536